=== PATIENT | female | born 1970 ===

== ENCOUNTER 2023-04-06 09:11 | Outpatient (CLI) | payer OTHER | END 2023-04-06 09:12 | disposition home or self-care (01) | LOC: DI 09:11 | PROVIDERS: ATTEND Family Medicine | DX: M35.7 Hypermobility syndrome (principal) | CPT/HCPCS: 93306 ==

== ENCOUNTER 2023-07-06 16:32 | Outpatient (CLI) | payer OTHER ==
--- NOTE | 2023-07-07 10:00 | MRI Report ---
PROCEDURE: KNEE WO - LT INDICATIONS: LEFT KNEE PAIN TECHNIQUE: Noncontrast sagittal PD fast spin echo and T2 fast spin echo with fat saturation, sagittal 3-D spoile d GE with fat saturation; coronal T1 spin echo and PD fast spin echo with fat saturation, and axial P D fast spin echo with fat saturation through the knee. COMPARISON: None. FINDINGS: Image quality: Excellent. Anterior cruciate ligament: Intact. Posterior cruciate ligament: Intact. Medial collateral ligament: Thickening the proximal medial collateral ligament without surrounding e eliecer is most likely secondary to a remote prior low-grade sprain. Lateral collateral ligament: Intact. Medial meniscus: There is horizontal oblique tearing of the posterior horn and body of the medial me niscus extending to the middle third of the tibial articular surface. Shallow radial tearing is also seen at the medial meniscal body. Lateral meniscus: Intact. Medial and lateral tendons: The semimembranosus tendon insertions appear intact. Visualized portion s of the pes anserinus tendons appear normal. The popliteus tendon appears intact. Iliotibial band appears normal. Anterior structures: The patellar tendon and the distal quadriceps tendon appear intact. No patellar subluxation. No femoral trochlear dysplasia or ventral trochlear prominence. No edema in the infra patellar fat pad. Bones: No acute trabecular bone injury or fracture. Circumscribed [id number] osseous lesion is seen at the anteromedial aspect of the distal femoral metaphysis with moderate at the interspace rosa ng the margins of the lesion and probable internal chondroid matrix, consistent with a benign enchond markus. Medial femorotibial cartilage: Mild partial thickness cartilage irregularity at the central weightbe aring portion of the medial femoral condyle. Lateral femorotibial cartilage: Partial-thickness cartilage irregularity at the posterior weightbear ing portion of the lateral tibial plateau. Patellofemoral cartilage: Full-thickness cartilage loss is seen at the trochlear groove inferiorly w ith focal subchondral cystic changes and subchondral edema. Shallow cartilage fissuring is seen at th e median ridge/lateral facet of the patella and at the medial femoral trochlea. Soft tissues: There is a small joint effusion. There is a trace medial popliteal cyst. The musculat ure surrounding the knee is normal in bulk. Mild nonspecific prepatellar subcutaneous soft tissue vic ma. IMPRESSION: 1.Complex tearing of the medial meniscus with horizontal oblique component at the posterior horn and body extending to the middle third of the tibial articular surface and a shallow radial component at the meniscal body. 2.Chronic low-grade sprain of the proximal medial collateral ligament. 3.Focal full-thickness cartilage loss at the inferior trochlear groove with subchondral cystic change s and edema. 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 4.Cruciate ligaments are intact. No acute trabecular bone injury. 5.Small joint effusion. Reviewed by: Gerard Ray MD on 07/07/2023 9:58 AM PST Approved by: Gerard Ray MD on 07/07/2023 9:58 AM PST Station ID: [id number]
== END 2023-07-06 16:33 | disposition home or self-care (01) ==
LOC: DI 16:32
PROVIDERS: ATTEND Family Medicine
DX: M35.7 Hypermobility syndrome (principal); S83.232A Complex tear of medial meniscus, current injury, left knee, initial encounter; S83.412D Sprain of medial collateral ligament of left knee, subsequent encounter; M94.262 Chondromalacia, left knee; M25.462 Effusion, left knee

== ENCOUNTER 2024-01-25 16:22 | Outpatient (CLI) | payer OTHER ==
--- NOTE | 2024-01-26 11:57 | MRI Report ---
PROCEDURE: Foot RT WO INDICATIONS: R TOE PAIN TECHNIQUE: Noncontrast sagittal T1 spin echo and T2 fast spin echo with fat saturation, long-axis T1 spin echo a nd T2 fast spin echo with fat saturation, short-axis proton density fast spin echo and T2 fast spin e cho with fat saturation through the forefoot. COMPARISON: None. FINDINGS: Image quality: Excellent. Bones and joints: First MTP joint osteoarthritic changes are seen with joint space narrowing, subchon dral sclerosis and small subcortical cystic changes. Mild first interphalangeal joint osteoarthritic changes also seen. There is no marrow edema. No acute fracture or dislocation. No metatarsal stress f ractures. No signal abnormality is seen within the sesamoid bones. Soft tissues: The visualized plantar foot muscles demonstrate normal signal and bulk. Visualized fl exor and extensor tendons appear intact, without tenosynovitis. No soft tissue ganglion cysts or bur indra fluid collections. Sagittal images demonstrate low to moderate grade partial-thickness tear invo lving lateral sesamoid phalangeal ligament of first MTP joint concerning for low-grade turf toe injur y. IMPRESSION: 1. 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 No marrow edema. No fracture or dislocation. No metatarsal stress fractures. 2. Low to moderate grade partial thickness tear involving lateral sesamoid phalangeal ligament of fir st MTP joint suggestive of low-grade turf toe injury. 3. Extensor and flexor tendons are intact. No gross plantar foot muscle signal abnormalities. Lisfran c ligament is intact. Reviewed by: Shaq Schroeder MD on 01/26/2024 11:55 AM PDT Approved by: Shaq Schroeder MD on 01/26/2024 11:55 AM PDT Station ID: [id number]
== END 2024-01-25 16:23 | disposition home or self-care (01) ==
LOC: DI 16:22
PROVIDERS: ATTEND Family Medicine
DX: M19.071 Primary osteoarthritis, right ankle and foot (principal); S93.691A Other sprain of right foot, initial encounter